=== PATIENT | male | born 1960 | race Caucasian/White ===

== ENCOUNTER 2017-06-16 07:45 | Emergency (ER) | payer MEDICARE, MEDICAID ==
[~2017-06-16] VITALS: Ht 172.7 cm; Wt 116.2 kg
[~2017-06-16 07:45] MED LIST: ALB0.5UD IH; LAMO200T2 PO; METF500T PO; MIN5C PO; RIS2T PO; TIOT18CA7 IH
[2017-06-16] MEDS ORDERED: ketorolac trometh inj. 60 MG/2 ML VIAL IM ONE (09:45)
[2017-06-16] MEDS ORDERED: CYCL-1 PO (09:49)
[2017-06-16 10:01] VITALS: BP 117/87
== END 2017-06-16 10:13 | disposition home or self-care (01) ==
LOC: ER 07:46
DX: M54.5 Low back pain (principal); E78.00 Pure hypercholesterolemia, unspecified; J44.9 Chronic obstructive pulmonary disease, unspecified; K21.9 Gastro-esophageal reflux disease without esophagitis; E11.9 Type 2 diabetes mellitus without complications; Z87.891 Personal history of nicotine dependence; Z98.890 Other specified postprocedural states; Z88.6 Allergy status to analgesic agent; Z79.899 Other long term (current) drug therapy
CPT/HCPCS: 96372; 99283; J1885

== ENCOUNTER 2017-07-04 06:09 | Day surgery (SDC) | payer MEDICARE, MEDICAID ==
[2017-07-02 09:16] LABS: BASOPHILS % (AUTO) 0.7 % (0-1); EOSINOPHILS # (AUTO) 0.1 X10'3 (0-0.9); HEMATOCRIT 42.7 % (42.0-52.0); HEMOGLOBIN 14.7 g/dl (14.0-17.9); LYMPHOCYTES # (AUTO) 1.1 X10'3 (1.1-4.8); LYMPHOCYTES % (AUTO) 18.8 % (21-51); MEAN CORPUSCULAR HGB CONC 34.4 % (33.0-36.5); MEAN CORPUSCULAR VOLUME 90.1 FL (78-98); MEAN PLATELET VOLUME 8.7 FL (7.4-10.4); MONOCYTES # (AUTO) 0.3 X10'3 (0-0.9); MONOCYTES % (AUTO) 5.8 % (2-12); NEUTROPHILS # (AUTO) 4.2 X10'3 (1.8-7.7); NEUTROPHILS % (AUTO) 72.7 % (42-75); PLATELET COUNT 158 X10'3 (140-440); RED BLOOD COUNT 4.74 X10'6 (4.70-6.10); RED CELL DISTRIBUTION WIDTH 13.5 % (11.5-14.5); WHITE BLOOD COUNT 5.8 X10'3 (4.5-11.0)
[2017-07-02 09:23] LABS: PARTIAL THROMBOPLASTIN TIME 27 SECONDS (22-32); PROTHROMBIN TIME 10.5 SECONDS (9.0-12.0)
[2017-07-02 09:29] LABS: ALANINE AMINOTRANSFERASE 62 U/L (12-78); ALBUMIN/GLOBULIN RATIO 1.2 (1.1-1.5); ALKALINE PHOSPHATASE 96 IU/L (46-116); ANION GAP 8 (8-16); ASPARTATE AMINO TRANSFERASE 32 U/L (10-37); BILIRUBIN,TOTAL 0.5 MG/DL (0.1-1.0); BLOOD UREA NITROGEN 14 MG/DL (7-18); CALCIUM 9.5 MG/DL (8.5-10.1); CHLORIDE 104 MMOL/L (99-107); GLUCOSE 150 MG/DL (70-104); POTASSIUM 4.1 MMOL/L (3.5-5.1); SODIUM 140 MMOL/L (135-145); TOTAL CARBON DIOXIDE 28.2 MMOL/L (24-32); TOTAL PROTEIN 7.3 G/DL (6.4-8.2); eGFR 78 ML/MIN
[~2017-07-04] VITALS: Ht 172.7 cm; Wt 117.5 kg
[2017-07-04] VITALS (12 sets, daily range): BP systolic 101–139; BP diastolic 62–96
[~2017-07-04 06:09] MED LIST changes: +CYCL-1 PO
[2017-07-04] MEDS ORDERED: normal saline 1000ml 1,000 ML IV SCH (06:25)
[2017-07-04] MEDS ORDERED: MESSAGE TO PHARMACY PO ONE (06:25)
[2017-07-04] MEDS ORDERED: LORazepam 0.5 MG tablet PO PRN (06:25)
[2017-07-04] MEDS ORDERED: nitroGLYCERIN 0.4mg SUBLingual tab SL PRN (06:25)
[2017-07-04] MEDS ORDERED: diphenhydrAMINE 25mg capsule PO PRN (06:25)
[2017-07-04] MEDS ORDERED: MIRT45TA6 PO (06:40)
[2017-07-04] MEDS ORDERED: BUDE10.2 INH (06:40)
[2017-07-04] MEDS ORDERED: ATOR40TA71 PO (06:40)
[2017-07-04] MEDS ORDERED: GABA-532 PO (06:40)
[2017-07-04] MEDS ORDERED: UMEC62.5 INH (06:40)
[2017-07-04] MEDS ORDERED: TRAZ-143 PO (06:40)
[2017-07-04] MEDS ORDERED: BUSP10TA11 PO (06:40)
[2017-07-04] MEDS ORDERED: dextrose 50%-water 50ml dispensing syringe IV PRN ×2 (08:00)
[2017-07-04] MEDS ORDERED: insulin Lispro (HumaLOG) vial - multi-dose SQ SCH (08:00)
[2017-07-04] MEDS ORDERED: glucagon, human recombinant 1mg kit SUBCUT PRN (08:00)
[2017-07-04] MEDS ORDERED: dextrose ORAL solution 15 GM/59 ML bottle PO PRN ×2 (08:00)
[2017-07-04] MEDS ORDERED: fentaNYL/PF 50MCG/1 ML 2ML syringe ONE (10:41)
[2017-07-04] MEDS ORDERED: midazolam 2 mg/2 ml injection ONE (10:42)
[2017-07-04] MEDS ORDERED: iohexol 350 MG/ML 50ML vial IV ONE (10:42)
[2017-07-04] MEDS ORDERED: LIDOcaine 1%/PF (10mg/ml) 5ml vial ONE (10:42)
[2017-07-04] MEDS ORDERED: iohexol 350MG/ML 100ml bottle IV ONE (10:42)
[2017-07-04 11:05] LABS: HEMOGLOBIN A1C 6.1 % (4.5-6.2)
[2017-07-04] MEDS ORDERED: proCHLORperazine 10 MG/2 ml inj IV PRN (14:50)
[2017-07-04] MEDS ORDERED: HYDROcodone/acetaminophen 5mg/325mg tablet PO PRN (14:50)
[2017-07-04] MEDS ORDERED: ondansetron/PF 4mg/2ml inj IV PRN (14:50)
[2017-07-04] MEDS ORDERED: OXAZEpam 15mg capsule PO PRN (14:50)
[2017-07-04] MEDS ORDERED: HYDROcodone/acetaminophen 10/325mg tab PO PRN (14:55)
[2017-07-04] MEDS ORDERED: insulin glargine (Lantus) pen - multi-dose SQ SCH (21:00)
== END 2017-07-04 18:10 | disposition home or self-care (01) ==
LOC: SSTAY O 06:09
PROVIDERS: ATTEND Internal Medicine Cardiovascular Disease
DX: I25.110 Atherosclerotic heart disease of native coronary artery with unstable angina pectoris (principal); E11.9 Type 2 diabetes mellitus without complications; J44.9 Chronic obstructive pulmonary disease, unspecified; E66.01 Morbid (severe) obesity due to excess calories; F32.9 Major depressive disorder, single episode, unspecified; G89.29 Other chronic pain; I25.2 Old myocardial infarction; I10 Essential (primary) hypertension; E78.5 Hyperlipidemia, unspecified; Z98.890 Other specified postprocedural states; Z79.84 Long term (current) use of oral hypoglycemic drugs; Z88.6 Allergy status to analgesic agent; Z68.39 Body mass index [BMI] 39.0-39.9, adult; Z79.899 Other long term (current) drug therapy
CPT/HCPCS: 36415; 71046; 80053; 82948; 83036; 85025; 85610; 85730; 93005; 93458; 99152; 99153; A6257; C1760; C1769; J1644; J1815; J2001; J2250; J3010; J7030; Q0163; Q9967; A4620

== ENCOUNTER 2017-08-15 06:19 | Emergency (ER) | payer MEDICARE, MEDICAID ==
[~2017-08-15] VITALS: Ht 172.7 cm; Wt 114.5 kg
[~2017-08-15 06:19] MED LIST changes: -ALB0.5UD IH; +ATOR40TA71 PO; +BUDE10.2 INH; +BUSP10TA11 PO; -CYCL-1 PO; +GABA-532 PO; +MIRT45TA6 PO; -TIOT18CA7 IH; +TRAZ-143 PO; +UMEC62.5 INH
[2017-08-15] MEDS ORDERED: ketorolac trometh inj. 60 MG/2 ML VIAL IM ONE (08:00)
[2017-08-15] MEDS ORDERED: morphine 4 MG/ML inj SYRINge IM ONE (08:00)
[2017-08-15] MEDS ORDERED: ondansetron 4mg rapidly disintigrating tab PO ONE (08:00)
[2017-08-15] MEDS ORDERED: IBUP-1985 PO (11:12)
[2017-08-15 11:48] VITALS: BP 105/65
== END 2017-08-15 11:50 | disposition home or self-care (01) ==
LOC: ER 06:19
DX: S39.012A Strain of muscle, fascia and tendon of lower back, initial encounter (principal); E78.00 Pure hypercholesterolemia, unspecified; E11.9 Type 2 diabetes mellitus without complications; K21.9 Gastro-esophageal reflux disease without esophagitis; J44.9 Chronic obstructive pulmonary disease, unspecified; Z88.6 Allergy status to analgesic agent; Z79.84 Long term (current) use of oral hypoglycemic drugs; Z79.899 Other long term (current) drug therapy; X50.1XXA Overexertion from prolonged static or awkward postures, initial encounter; Y93.89 Activity, other specified; Y92.89 Other specified places as the place of occurrence of the external cause; Y99.8 Other external cause status
CPT/HCPCS: 72148; 96372; 99284; J1885; J2270

== ENCOUNTER 2018-04-01 09:01 | Emergency (ER) | payer MEDICARE, MEDICAID ==
[~2018-04-01] VITALS: Ht 172.7 cm; Wt 123.0 kg
[~2018-04-01 09:01] MED LIST changes: +IBUP-1985 PO; -MIRT45TA6 PO; +MIRT45TA83 PO; -TRAZ-143 PO; +TRAZ-218 PO
[2018-04-01] MEDS ORDERED: ONDA4TAB12 PO (09:56)
[2018-04-01] MEDS ORDERED: HYDR-3965 PO (09:56)
[2018-04-01 10:31] VITALS: BP 122/48
== END 2018-04-01 10:52 | disposition home or self-care (01) ==
LOC: ER 09:01
DX: K42.9 Umbilical hernia without obstruction or gangrene (principal); E78.00 Pure hypercholesterolemia, unspecified; J44.9 Chronic obstructive pulmonary disease, unspecified; K21.9 Gastro-esophageal reflux disease without esophagitis; E11.9 Type 2 diabetes mellitus without complications; Z98.890 Other specified postprocedural states; Z88.6 Allergy status to analgesic agent; Z79.899 Other long term (current) drug therapy
CPT/HCPCS: 99283

== ENCOUNTER 2019-06-23 07:43 | Emergency (ER) | payer MEDICARE, MEDICAID ==
[~2019-06-23] VITALS: Ht 172.7 cm; Wt 112.0 kg
[~2019-06-23 07:43] MED LIST changes: +ONDA4TAB12 PO; -TRAZ-218 PO; +TRAZ-251 PO
[2019-06-23] MEDS ORDERED: ALBU18HF2 INH (08:28)
[2019-06-23] MEDS ORDERED: PRED20TA PO (08:28)
[2019-06-23] MEDS ORDERED: DOXY100C43 PO (08:28)
[2019-06-23 08:30] LABS: BASOPHILS % (AUTO) 0.6 % (0-1); EOSINOPHILS # (AUTO) 0.2 X10'3 (0-0.9); EOSINOPHILS % (AUTO) 2.1 % (0-6); HEMATOCRIT 45.1 % (42.0-52.0); HEMOGLOBIN 15.7 g/dl (14.0-17.9); LYMPHOCYTES # (AUTO) 1.3 X10'3 (1.1-4.8); LYMPHOCYTES % (AUTO) 16.7 % (21-51); MEAN CORPUSCULAR HEMOGLOBIN 32.6 PG (27.0-31.0); MEAN CORPUSCULAR HGB CONC 34.7 g/dL (33.0-36.5); MEAN CORPUSCULAR VOLUME 93.7 FL (78-98); MEAN PLATELET VOLUME 8.4 FL (7.4-10.4); MONOCYTES # (AUTO) 0.5 X10'3 (0-0.9); NEUTROPHILS # (AUTO) 5.8 X10'3 (1.8-7.7); NEUTROPHILS % (AUTO) 74.6 % (42-75); PLATELET COUNT 193 X10'3 (140-440); RED BLOOD COUNT 4.82 X10'6 (4.70-6.10); RED CELL DISTRIBUTION WIDTH 13.4 % (11.5-14.5); WHITE BLOOD COUNT 7.7 X10'3 (4.5-11.0)
[2019-06-23] MEDS ORDERED: ipratropium/albuterol 3ml nebule NEB ONE (08:40)
[2019-06-23] MEDS ORDERED: dexamethasone 4mg tablet PO ONE (08:40)
[2019-06-23 08:47] LABS: ALANINE AMINOTRANSFERASE 274 U/L (12-78); ALBUMIN 3.4 G/DL (3.4-5.0); ALBUMIN/GLOBULIN RATIO 0.8 (1.1-1.5); ALKALINE PHOSPHATASE 195 IU/L (46-116); ANION GAP 8 (8-16); ASPARTATE AMINO TRANSFERASE 173 U/L (10-37); BILIRUBIN,TOTAL 0.4 MG/DL (0.1-1.0); BLOOD UREA NITROGEN 7 MG/DL (7-18); BUN/CREATININE RATIO 7.9 (5.4-32.0); CALCIUM 8.8 MG/DL (8.5-10.1); CHLORIDE 105 MMOL/L (99-107); CREATININE 0.89 MG/DL (0.60-1.10); GLUCOSE 113 MG/DL (70-104); POTASSIUM 4.3 MMOL/L (3.5-5.1); SODIUM 138 MMOL/L (135-145); TOTAL CARBON DIOXIDE 25.5 MMOL/L (24-32); TOTAL PROTEIN 7.7 G/DL (6.4-8.2); eGFR 88 ML/MIN
[2019-06-23] MEDS ORDERED: BENZ-16 PO (09:04)
[2019-06-23] MEDS ORDERED: ALB0.5UD IH (09:05)
[2019-06-23 09:36] VITALS: BP 108/99
== END 2019-06-23 09:38 | disposition home or self-care (01) ==
LOC: ER 07:45
DX: J44.1 Chronic obstructive pulmonary disease with (acute) exacerbation (principal); J20.9 Acute bronchitis, unspecified; E78.00 Pure hypercholesterolemia, unspecified; K21.9 Gastro-esophageal reflux disease without esophagitis; E11.9 Type 2 diabetes mellitus without complications; Z87.891 Personal history of nicotine dependence; Z98.890 Other specified postprocedural states; Z88.6 Allergy status to analgesic agent; Z79.899 Other long term (current) drug therapy
CPT/HCPCS: 36415; 71046; 80053; 83605; 85025; 87040; 93005; 94640; 94760; 99284

== ENCOUNTER 2019-06-29 18:57 | Emergency (ER) | payer MEDICARE, MEDICAID ==
[~2019-06-29] VITALS: Ht 172.7 cm; Wt 113.6 kg
[~2019-06-29 18:57] MED LIST changes: +ALB0.5UD IH; +ALBU18HF2 INH; +BENZ-16 PO; +DOXY100C43 PO; +PRED20TA PO
[2019-06-29] MEDS ORDERED: fentaNYL/PF 50MCG/1 ML 2ML syringe IV ONE (19:35)
[2019-06-29 19:43] LABS: BASOPHILS # (AUTO) 0.1 X10'3 (0-0.2); BASOPHILS % (AUTO) 0.7 % (0-1); EOSINOPHILS # (AUTO) 0.2 X10'3 (0-0.9); EOSINOPHILS % (AUTO) 1.7 % (0-6); HEMATOCRIT 43.2 % (42.0-52.0); LYMPHOCYTES # (AUTO) 1.9 X10'3 (1.1-4.8); LYMPHOCYTES % (AUTO) 19.3 % (21-51); MEAN CORPUSCULAR HEMOGLOBIN 32.4 PG (27.0-31.0); MEAN CORPUSCULAR HGB CONC 34.8 g/dL (33.0-36.5); MEAN PLATELET VOLUME 8.5 FL (7.4-10.4); MONOCYTES # (AUTO) 0.6 X10'3 (0-0.9); NEUTROPHILS # (AUTO) 7.2 X10'3 (1.8-7.7); NEUTROPHILS % (AUTO) 72.3 % (42-75); PLATELET COUNT 171 X10'3 (140-440); RED BLOOD COUNT 4.64 X10'6 (4.70-6.10); RED CELL DISTRIBUTION WIDTH 13.6 % (11.5-14.5)
[2019-06-29 20:02] LABS: ALANINE AMINOTRANSFERASE 90 U/L (12-78); ALBUMIN 3.2 G/DL (3.4-5.0); ALBUMIN/GLOBULIN RATIO 0.9 (1.1-1.5); ALKALINE PHOSPHATASE 220 IU/L (46-116); ANION GAP 6 (8-16); ASPARTATE AMINO TRANSFERASE 37 U/L (10-37); BILIRUBIN,TOTAL 0.4 MG/DL (0.1-1.0); BLOOD UREA NITROGEN 14 MG/DL (7-18); BUN/CREATININE RATIO 15.6 (5.4-32.0); CALCIUM 8.9 MG/DL (8.5-10.1); CHLORIDE 105 MMOL/L (99-107); GLUCOSE 201 MG/DL (70-104); POTASSIUM 3.7 MMOL/L (3.5-5.1); SODIUM 139 MMOL/L (135-145); TOTAL CARBON DIOXIDE 28.1 MMOL/L (24-32); TOTAL PROTEIN 6.7 G/DL (6.4-8.2); eGFR 87 ML/MIN
[2019-06-29] MEDS ORDERED: BENZ-16 PO (21:08)
[2019-06-29] MEDS ORDERED: morphine 4 MG/ML inj SYRINge IV ONE (21:25)
[2019-06-29] MEDS ORDERED: MIRT-66 PO (22:28)
[2019-06-29] MEDS ORDERED: ALBU2.5V13 NEB (22:29)
[2019-06-29] MEDS ORDERED: DOXY-327 PO (22:30)
[2019-06-29 23:45] VITALS: BP 166/90
== END 2019-06-29 23:50 | disposition home or self-care (01) ==
LOC: ER 18:58
DX: R10.12 Left upper quadrant pain (principal); E78.00 Pure hypercholesterolemia, unspecified; J44.9 Chronic obstructive pulmonary disease, unspecified; K21.9 Gastro-esophageal reflux disease without esophagitis; E11.9 Type 2 diabetes mellitus without complications; F41.9 Anxiety disorder, unspecified; F32.9 Major depressive disorder, single episode, unspecified; Z98.890 Other specified postprocedural states; Z88.6 Allergy status to analgesic agent; Z79.899 Other long term (current) drug therapy
CPT/HCPCS: 36415; 71045; 71250; 80053; 83690; 83880; 84484; 85025; 93005; 96374; 96375; 99284; J2270; J3010

== ENCOUNTER 2019-07-30 21:53 | Emergency (ER) | payer MEDICARE, MEDICAID ==
[~2019-07-30] VITALS: Ht 172.7 cm; Wt 110.5 kg
[~2019-07-30 21:53] MED LIST changes: -ALB0.5UD IH; +ALBU2.5V13 NEB; -BENZ-16 PO; -BUSP10TA11 PO; +DOXY-327 PO; -DOXY100C43 PO; -IBUP-1985 PO; -MIN5C PO; +MIRT-66 PO; -MIRT45TA83 PO; -ONDA4TAB12 PO; -PRED20TA PO; -RIS2T PO
[2019-07-30] MEDS ORDERED: ondansetron/PF 4mg/2ml inj IV ONE (22:15)
[2019-07-30] MEDS ORDERED: normal saline 1000ML IV soln IVB ONE (22:15)
[2019-07-30] MEDS: morphine 4 MG/ML inj SYRINge IV PRN ×2 (22:23→23:26)
[2019-07-30 22:32] LABS: BASOPHILS # (AUTO) 0.1 X10'3 (0-0.2); BASOPHILS % (AUTO) 1.2 % (0-1); EOSINOPHILS # (AUTO) 0.2 X10'3 (0-0.9); EOSINOPHILS % (AUTO) 2.5 % (0-6); HEMATOCRIT 45.5 % (42.0-52.0); HEMOGLOBIN 15.6 g/dl (14.0-17.9); LYMPHOCYTES # (AUTO) 1.3 X10'3 (1.1-4.8); MEAN CORPUSCULAR HEMOGLOBIN 32.5 PG (27.0-31.0); MEAN CORPUSCULAR HGB CONC 34.4 g/dL (33.0-36.5); MEAN CORPUSCULAR VOLUME 94.6 FL (78-98); MEAN PLATELET VOLUME 8.8 FL (7.4-10.4); MONOCYTES # (AUTO) 0.6 X10'3 (0-0.9); MONOCYTES % (AUTO) 6.9 % (2-12); NEUTROPHILS # (AUTO) 6.1 X10'3 (1.8-7.7); NEUTROPHILS % (AUTO) 73.4 % (42-75); PLATELET COUNT 171 X10'3 (140-440); RED BLOOD COUNT 4.81 X10'6 (4.70-6.10); RED CELL DISTRIBUTION WIDTH 13.7 % (11.5-14.5); WHITE BLOOD COUNT 8.3 X10'3 (4.5-11.0)
[2019-07-30 22:34] LABS: ALANINE AMINOTRANSFERASE 396 U/L (12-78); ALBUMIN 3.4 G/DL (3.4-5.0); ALBUMIN/GLOBULIN RATIO 0.8 (1.1-1.5); ALKALINE PHOSPHATASE 232 IU/L (46-116); ANION GAP 7 (8-16); ASPARTATE AMINO TRANSFERASE 278 U/L (10-37); BILIRUBIN,TOTAL 0.4 MG/DL (0.1-1.0); BLOOD UREA NITROGEN 6 MG/DL (7-18); BUN/CREATININE RATIO 6.5 (5.4-32.0); CALCIUM 9.7 MG/DL (8.5-10.1); CHLORIDE 107 MMOL/L (99-107); CREATININE 0.93 MG/DL (0.60-1.10); GLUCOSE 162 MG/DL (70-104); LIPASE 158 U/L (73-393); POTASSIUM 3.8 MMOL/L (3.5-5.1); SODIUM 144 MMOL/L (135-145); TOTAL CARBON DIOXIDE 30.1 MMOL/L (24-32); TOTAL PROTEIN 7.8 G/DL (6.4-8.2); eGFR 83 ML/MIN
[2019-07-30] MEDS ORDERED: ketorolac trometh. 30mg/ml inj. IV ONE (23:30)
[2019-07-30] MEDS ORDERED: HYDR-4353 PO (23:52)
[2019-07-30] MEDS ORDERED: HYDROcodone/acetaminophen 10/325mg tab PO ONE (23:55)
--- NOTE | 2019-07-30 23:56 | NUR ---
ALERTED JACOB ACOSTA OF TACHYCARDIA AND O2 SAT AT 76% RA AND PLACING PT ON 2 L NC. JACOB ACOSTA ORDERED TO HOLD NORCO AND HOLD D/C. WILL CONTINUE TO MONITOR PT
[2019-07-31] MEDS ORDERED: normal saline 1000ML IV soln IVB ONE
[2019-07-31 00:29] LABS: CLARITY,URINE CLEAR (Clear); COLOR,URINE YELLOW (Yellow); GLUCOSE, URINE NEGATIVE (Neg); KETONES,URINE NEGATIVE (Neg); LEUKOCYTE ESTERASE ,URINE NEGATIVE (Neg); NITRITES, URINE NEGATIVE (Neg); OCCULT BLOOD,URINE NEGATIVE (Neg); PROTEIN,URINE NEGATIVE (Neg)
[2019-07-31 00:36] LABS: ETHANOL < 0.010 GM/DL (0.0-0.010)
[2019-07-31 00:39] LABS: URINE AMPHETAMINE SCREEN NEGATIVE (Neg); URINE BARBITUATE SCREEN NEGATIVE (Neg); URINE BENZODIAZEPINES SCREEN NEGATIVE (Neg); URINE CANNABINOID SCREEN NEGATIVE (Neg); URINE COCAINE SCREEN NEGATIVE (Neg); URINE METHADONE SCREEN NEGATIVE (Neg); URINE OPIATE SCREEN POSITIVE (Neg); URINE PHENCYCLIDINE SCREEN NEGATIVE (Neg)
[2019-07-31 00:43] LABS: UA COLLECTION TYPE URINAL
[2019-07-31 01:18] VITALS: BP 130/95
== END 2019-07-31 01:20 | disposition home or self-care (01) ==
LOC: ER 21:54
DX: R10.11 Right upper quadrant pain (principal); K76.89 Other specified diseases of liver; K76.0 Fatty (change of) liver, not elsewhere classified; K75.9 Inflammatory liver disease, unspecified; E78.00 Pure hypercholesterolemia, unspecified; J44.9 Chronic obstructive pulmonary disease, unspecified; K21.9 Gastro-esophageal reflux disease without esophagitis; E11.9 Type 2 diabetes mellitus without complications; F41.9 Anxiety disorder, unspecified; F32.9 Major depressive disorder, single episode, unspecified; Z98.890 Other specified postprocedural states; Z88.6 Allergy status to analgesic agent; Z79.899 Other long term (current) drug therapy
CPT/HCPCS: 36415; 74176; 80053; 80305; 80320; 81003; 83690; 85025; 96374; 96375; 96376; 99284; J1885; J2270; J2405; J7030

== ENCOUNTER 2019-07-31 06:59 | Emergency (ER) | payer MEDICARE, MEDICAID ==
[~2019-07-31] VITALS: Ht 172.7 cm; Wt 110.5 kg
[~2019-07-31 06:59] MED LIST changes: +HYDR-4353 PO
[2019-07-31 07:25] VITALS: BP 110/73
== END 2019-07-31 07:52 | disposition home or self-care (01) ==
LOC: ER 06:59
DX: R94.5 Abnormal results of liver function studies (principal); R10.9 Unspecified abdominal pain; E78.00 Pure hypercholesterolemia, unspecified; J44.9 Chronic obstructive pulmonary disease, unspecified; K21.9 Gastro-esophageal reflux disease without esophagitis; E11.9 Type 2 diabetes mellitus without complications; F41.9 Anxiety disorder, unspecified; F32.9 Major depressive disorder, single episode, unspecified; Z98.890 Other specified postprocedural states; Z88.6 Allergy status to analgesic agent; Z79.899 Other long term (current) drug therapy
CPT/HCPCS: 99281

== ENCOUNTER 2021-01-12 06:48 | Outpatient (CLI) | payer MEDICARE, MEDICAID ==
[~2021-01-12] VITALS: Ht 172.7 cm; Wt 106.6 kg
[~2021-01-12 06:48] MED LIST changes: +ATOR20TA66 PO; -ATOR40TA71 PO; +BUSP15TA3 PO; -DOXY-327 PO; -GABA-532 PO; +GABA300C PO; -HYDR-4353 PO; -LAMO200T2 PO; -MIRT-66 PO; -TRAZ-251 PO
[2021-01-12] MEDS ORDERED: albuterol 2.5 MG/3 ML nebule NEB ONE (07:45)
== END 2021-01-12 23:59 | disposition home or self-care (01) ==
LOC: RT 06:48
PROVIDERS: ATTEND Internal Medicine
DX: R94.2 Abnormal results of pulmonary function studies (principal); J44.9 Chronic obstructive pulmonary disease, unspecified
CPT/HCPCS: 94060; 94727; 94729; 94760